=== PATIENT | female | born 1995 | race Caucasian/White ===

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

== ENCOUNTER → 2017-05-30 | Outpatient (CLI) | payer OTHER ==
--- NOTE | 2017-05-30 13:37 | DIAGNOSTIC IMAGING REPORT ---
R KNEE 4 OR MORE CLINICAL HISTORY: Right ACL tear COMPARISON: Right tibia and fibular radiographs December 10, 2016. FINDINGS: Alignment of the right knee is anatomic. A moderate size right knee joint effusion is present. No fracture is identified. Joint spaces are preserved. IMPRESSION: 1. No acute fracture. 2. Moderate size right knee joint effusion. Electronically signed by: Sonu Mcmillan M.D. 05/30/2017 1:36 PM Dictated Date/Time: 05/30/2017 1:35 PM
== END | disposition home or self-care (01) ==
LOC: C.RDSM 12:39
PROVIDERS: ATTEND Family Medicine
DX: S83.511A Sprain of anterior cruciate ligament of right knee, initial encounter (principal); X58.XXXA Exposure to other specified factors, initial encounter; M25.461 Effusion, right knee

== ENCOUNTER → 2017-05-31 | Outpatient (CLI) | payer BC, OTHER ==
--- NOTE | 2017-05-31 08:52 | DIAGNOSTIC IMAGING REPORT ---
MRI THE RIGHT KNEE NO CONTRAST CLINICAL HISTORY: Right knee pain. COMPARISON STUDY: Conventional radiographic study dated 05/30/2017 FINDINGS: Imaging was performed in the sagittal, coronal, and axial planes. There is a moderate joint effusion present. There is a subtle impaction injury with subchondral marrow edema involving the lateral femoral condyle. There is a bone contusion involving the lateral tibial plateau. The medial and lateral collateral ligaments appear intact. The patellar and quadriceps tendons appear intact. The posterior cruciate ligament appears normal. The anterior cruciate ligament is torn. No meniscal tears are visualized. IMPRESSION: 1. Anterior cruciate ligament tear 2. Moderate joint effusion 3. Subtle of traction injury with subchondral marrow edema involving the lateral femoral condyle 4. Bone contusion involving the lateral tibial plateau 5. No evidence of collateral ligament disruption 6. No evidence of meniscal tear Electronically signed by: Evan Vasquez M.D. 05/31/2017 8:51 AM Dictated Date/Time: 05/31/2017 8:44 AM
== END | disposition home or self-care (01) ==
LOC: C.MRI 07:36
PROVIDERS: ATTEND Family Medicine
DX: S83.511A Sprain of anterior cruciate ligament of right knee, initial encounter (principal); X58.XXXA Exposure to other specified factors, initial encounter; M25.461 Effusion, right knee